=== PATIENT | female | born 1950 | race Caucasian/White ===

== ENCOUNTER 2021-09-16 10:34 | Day surgery (SDC) | payer MEDICARE ==
[~2021-09-16] VITALS: Ht 157.5 cm; Wt 102.0 kg
[~2021-09-16 10:34] MED LIST: BUPIVACAINE MPF 0.5% 30 ML VIAL. ONE; CALC500T30 PO; CETI10TA74 PO; CRAN400C PO; CYAN500T7 PO; DENO60DI SQ; DEXAMETHASONE SOD PHOS 4 MG/ML VIAL ONE; DILT240C33 PO; FERR-36 PO; FLUO5DRO5 OP; HYDROmorphone 2 MG/ML INJ. IVP PRN; IV RINGERS,LACTATED 1000ML 1,000 ML IV SCH; KRIL500C PO; LIDOCAINE 1% PF 30 ML VIAL. ONE; LUTE1CAP5 PO; MORPHINE SULFATE 2 MG/ML INJ. IVP PRN; MULT-496 PO; PANT40TA77 PO; POVIDONE-IODINE 10% TOPICAL OINTMENT 28GM TUBE. TP ONE; PROCHLORPERAZINE 10 MG/2 ML VIAL. IVP PRN; fentaNYL PF VIAL 100 MCG/2 ML VIAL IVP PRN
[2021-09-16 11:21] VITALS: BP 121/65
[2021-09-16 11:43] LABS: BASO # 0.1 x10^3/uL (0.0-0.2); BASO % 1 % (0-3); EOS # 0.1 x10^3/uL (0.0-0.7); EOS % 1 % (0-3); HEMATOCRIT 35.2 % (36.0-47.0); HEMOGLOBIN 11.7 g/dL (12.0-15.5); LYMPH # 1.1 x10^3/uL (1.0-4.8); LYMPH % 19 % (24-48); MEAN CORPUSCULAR HEMOGLOBIN 29 pg (25-35); MEAN CORPUSCULAR HGB CONC 33 g/dL (31-37); MEAN CORPUSCULAR VOLUME 88 fL (79-100); MONO # 0.4 x10^3/uL (0.0-1.1); MONO % 7 % (0-9); NEUT # 3.9 x10^3/uL (1.8-7.7); NEUT % 72 % (31-73); PLATELET COUNT 297 x10^3/uL (140-400); RED BLOOD COUNT 4.02 x10^6/uL (3.50-5.40); RED CELL DISTRIBUTION WIDTH 16.5 % (11.5-14.5); WHITE BLOOD COUNT 5.5 x10^3/uL (4.0-11.0)
[2021-09-16 11:52] LABS: CALCIUM 9.2 mg/dL (8.5-10.1); CREATININE 0.7 mg/dL (0.6-1.0); GFR 82.7
[2021-09-16 11:57] LABS: ALBUMIN 3.6 g/dL (3.4-5.0); ALBUMIN/GLOBULIN RATIO 0.8 (1.0-1.7); TOTAL BILIRUBIN 0.2 mg/dL (0.2-1.0); TOTAL PROTEIN 8.4 g/dL (6.4-8.2)
[2021-09-16] MEDS ORDERED: DEXAMETHASONE SOD PHOS 4 MG/ML VIAL ONE (12:13)
[2021-09-16] MEDS ORDERED: PROPOFOL 10 MG/ML (20ML) VIAL. IV ONE (12:13)
[2021-09-16] MEDS ORDERED: fentaNYL PF VIAL 100 MCG/2 ML VIAL ONE (12:13)
[2021-09-16] MEDS ORDERED: LIDOCAINE 1% PF 5 ML VIAL. ONE (12:13)
[2021-09-16] MEDS ORDERED: ONDANSETRON PF 4 MG/2 ML VIAL. ONE (12:14)
[2021-09-16] MEDS ORDERED: MIDAZOLAM HCL/PF 2 MG/2 ML VIAL. ONE (12:24)
[2021-09-16] MEDS ORDERED: PHENYLEPHRINE in 0.9% NACL PF 1 MG/10 ML SYRINGE. IV ONE (12:37)
--- NOTE | 2021-09-16 12:45 | SSS ---
DATE OF SERVICE: 09/16/2021 ADMIT DATE: 09/16/2021 CHIEF COMPLAINT: Left foot hammertoe preoperative evaluation. 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 She basically has a hammertoe on the left. Dr. Acuna has taken her to the OR here just shortly. We have been requested for preoperative evaluation. PAST MEDICAL HISTORY: Unsustained SVT for which she is on Cardizem for, allergic rhinitis, anemia, hypertension, GERD, B12 deficiency, dry eyes, UTI. ALLERGIES: None. FAMILY HISTORY: Hypertension. 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 She is retired. She does not drink, smoke or take drugs. MEDICATIONS: Reviewed. She is on 12 including Zyrtec, iron, Cardizem CD 240 a day, calcium, fluorometholone, Protonix 40 a day, B12, multiple vitamins, Prolia, cranberry supplements, Krill oil, Ocuvite. REVIEW OF SYSTEMS: GENERAL: No history of weight change, weakness or fevers. SKIN: No bruising, hair changes or rashes. EYES: No blurred, double or loss of vision. NOSE AND THROAT: No history of nosebleeds, hoarseness or sore throat. HEART: No history of palpitations, chest pain or shortness of breath on exertion. LUNGS: Denies cough, hemoptysis, wheezing or shortness of breath. GASTROINTESTINAL: Denies changes in appetite, nausea, vomiting, diarrhea or constipation. GENITOURINARY: No history of frequency, urgency, hesitancy or nocturia. NEUROLOGIC: Denies history of numbness, tingling, tremor or weakness. PSYCHIATRIC: No history of panic, anxiety or depression. ENDOCRINE: No history of heat or cold intolerance, polyuria or polydipsia. EXTREMITIES: She complains of left toe pain. PHYSICAL EXAMINATION: VITALS: Within normal limits and are stable. GENERAL: No apparent distress. Alert and oriented. HEENT: Normal cephalic atraumatic, external auditory canals are patent EYES: Extraocular muscles are intact, pupils are equally round and reactive to light and accommodation MUSCULOSKELETAL: Well developed, well nourished, good range of motion ENDOCRINE: No thyromegaly was palpated LYMPHATICS: No cervical chain or axillary nodes were noted HEMATOPOIETIC: No bruising NECK: Supple, no JVD, no thyromegaly was noted. LUNGS: Clear to auscultation in all lung dyson without rhonchi or wheezing. HEART: RRR, S1, S2 present. Peripheral pulses intact, no obvious murmurs were noted. ABDOMEN: Soft, nontender. Positive bowel sounds no organomegaly, normal bowel sounds. EXTREMITIES: She has a hammertoe on the left. Please see the pictures. NEUROLOGIC: Normal speech, normal tone. A and O x 3, moves all extremities, no obvious focal deficits. PSYCHIATRIC: Normal affect, normal mood. Stable. SKIN: No ulcerations or rashes, good skin turgor, no jaundice. VASCULAR: Good capillary refill, neurovascular bundle appears to be intact. LABORATORY DATA: White count 5.5, hemoglobin 11.7, platelets 297. Electrolytes are normal other than a slightly low sodium of 135. Albumin is 3.6, total protein slightly high at 8.4. ASSESSMENT AND PLAN: Hammertoe. Clinically, she is doing well. I suspect she is at low risk for intraoperative or postoperative complications. Would recommend going forward with surgery. I discussed the case with the nurse and the preop team. I am available if she needs to be admitted after surgery, but as I understand she is planning to go home. If she gets home after surgery, would recommend she is to follow up with her doctor in a week. Continue home medications. Thank you very much for allowing us to participate in the care of this nice lady. JUDITH DR: Graciela TID: [id number] CC: KARSTEN ACUNA DPM
[2021-09-16] MEDS ORDERED: ePHEDrine PF IN SALINE 50 MG/10 ML SYRINGE. IV ONE (12:59)
[2021-09-16] MEDS ORDERED: HYDR-2759 PO (13:21)
--- NOTE | 2021-09-16 13:26 | PDOC4 ---
OPERATIVE NOTE: Surgeon Armand Pre op diagnosis: hammer toe 3rd left foot post op diagnosis Same Procedure: Arthroplasty 3rd toe left Anesthesia LMA with local Hemostasis: Left ankle tourniquet at 250mmHg EBL: 0mL Materials: 0.045 kwire intra operative findings: consistent with diagnosis Patient tolerated both anesthesia and procedure well. Patient transferred to PACU with VSS and VSI left foot KARSTEN MCKEON DPM Sep 16, 2021 13:26
--- NOTE | 2021-09-16 13:49 | OP ---
DATE OF SURGERY: 09/16/2021 PREOPERATIVE DIAGNOSIS: Hammertoe, left foot 3rd digit. POSTOPERATIVE DIAGNOSIS: Hammertoe, left foot 3rd digit. PROCEDURE: Arthroplasty of the third digit, left foot. SURGEON: Ryland Acuna DPM ANESTHESIA: LMA with local. HEMOSTASIS: Left ankle tourniquet at 250 mmHg. INDICATIONS: The patient is a 70-year-old female with a chronically painful third toe with associated lesion at the proximal interphalangeal joint, dorsal aspect. The patient has failed conservative treatment of accommodative shoes and padding and x-ray showed a dorsally contracted digit at the proximal interphalangeal joint consistent with hammertoe deformity. Discussed with the patient the possible benefits, risks, and complications to include delayed or nonhealing, recurrence of deformity, infection, need for further surgery, recurrence of lesion, painful scar, swelling, numbness, tingling, damage to nerve or blood vessels, chronic pain, loss of toe, foot, limb or life, blood clot to the leg, DVT, blood clot to the lung, pulmonary embolism. No guarantees were made, all questions were answered, the patient signed consent freely and put in chart. DESCRIPTION OF PROCEDURE: The patient was transported to the operating room via a cart and placed on the operating table in supine position. Following verification of the surgery, the patient's limb was performed. A 2 grams of IV Ancef were given to the patient preoperatively. A third ray block was administered to the left foot consisting of a 1:1 mixture of 1% lidocaine plain and 0.5% Marcaine plain. Timeout was taken to verify the patient, limb, and surgery to be performed. The left foot was then prepped and draped in the usual aseptic manner and a well-padded tourniquet was placed over the left ankle. Attention was directed to the left foot. Esmarch bandage was used to exsanguinate the left foot and left ankle tourniquet was inflated to 250 mmHg. Attention was directed to the third toe, where 2 converging semi-elliptical incisions were made over the proximal interphalangeal joint to resect the associated callus. The skin was removed in toto. Next, small vessels were cauterized and the neurovascular bundle was safely reflected from the surgical site. The extensor tendon was horizontally resected at the level of proximal interphalangeal joint and the medial and lateral collateral ligaments were then also resected. A sagittal saw was utilized to resect the head of the proximal phalanx that was noted some degenerative changes to the cartilage of the middle phalanx base. Next, a copious irrigation was performed to cleanse the surgical site and a 0.045 K-wire was then placed through the middle and distal phalanx and then forwarded through the proximal phalanx. A C-arm fluoroscopy was utilized to confirm the positioning and was noted to be slightly long into the joint and thus it was backed up slightly in satisfactory alignment. Toe was in rectus position. The K-wire was then cut and capped and the extensor tendon was reapproximated with 3-0 Vicryl. Skin was reapproximated with 4-0 nylon. A Betadine ointment, Adaptic gauze, 4 x 4s and Kerlix bandage and Doc bandage were then applied and the tourniquet was deflated. Good perfusion was noted to all digits of the left foot. The patient tolerated both anesthesia and procedure well. Postop instructions are in the chart. X-ray will be taken to the PACU again. KUSH DR: Olvin TID: [id number]
[2021-09-16 14:11] VITALS: BP 113/49
[2021-09-16] MEDS ORDERED: HYDROcodone/APAP 5/325MG 1 TAB TABLET PO ONE (14:30)
--- NOTE | 2021-09-17 09:25 | RAD ---
3 views left foot without comparison for status post hammertoes third in the PACU. FINDINGS: There are postsurgical changes of distal resection of the proximal phalanx of the third dig it with K wire fixation of the third phalanges. 2 screws are present within the first metatarsal as w ell. No acute fracture or dislocation is identified. No juxta articular osteopenia or erosions are se en. No unexpected radiopaque foreign bodies. IMPRESSION: 1. Postsurgical changes of the foot as described. Electronically signed by: Morgan Rendon MD (09/17/2021 9:23 AM) [id number]
== END 2021-09-16 14:57 | disposition home or self-care (01) ==
LOC: SURG 10:34
PROVIDERS: ATTEND Podiatrist Foot & Ankle Surgery
DX: M20.42 Other hammer toe(s) (acquired), left foot (principal); E66.9 Obesity, unspecified; K21.9 Gastro-esophageal reflux disease without esophagitis; M19.90 Unspecified osteoarthritis, unspecified site; M81.0 Age-related osteoporosis without current pathological fracture; Z90.49 Acquired absence of other specified parts of digestive tract; Z98.890 Other specified postprocedural states; Z79.899 Other long term (current) drug therapy; Z85.3 Personal history of malignant neoplasm of breast; Z88.8 Allergy status to other drugs, medicaments and biological substances
CPT/HCPCS: 28285; 36415; 73630; 80053; 85025; A4930; A6222; A6223; A6402; A6449; J0690; J1100; J2250; J2370; J2405; J2704; J3010; J3490; A4657; A6443